=== PATIENT | male | born 1985 | race African-American/Black ===

== ENCOUNTER 2024-06-14 13:56 | Emergency (ER) | payer SELFPAY ==
[~2024-06-14] VITALS: Ht 170.2 cm; Wt 80.0 kg
[2024-06-14 14:01] VITALS: TEMP 36.7; O2SAT 98
[2024-06-14] MEDS: CLONIDINE 0.1MG TABLET PO ONE (14:51)
[2024-06-14 15:07] LABS: BASOPHILS % 0.5 % (0.0-2.0); EOSINOPHILS % 0.4 % (0.0-5.0); HEMATOCRIT. 47.5 % (42.0-52.0); HEMOGLOBIN. 15.7 g/dL (14.0-18.0); LYMPHOCYTES % 19.1 % (20.0-50.0); MEAN CORPUSCULAR HEMOGLOBIN 30.7 pg (28.0-32.0); MEAN CORPUSCULAR VOLUME 93.1 fL (80.0-94.0); MEAN PLATELET VOLUME 7.9 fl (7.4-10.4); MONOCYTES % 6.3 % (2.0-8.0); NEUTROPHILS % 73.7 % (40.0-76.0); PLATELET 290 x1000/uL (130-400); RED CELL DISTRIBUTION WIDTH 13.5 % (11.6-14.6)
[2024-06-14 15:13] LABS: CHLORIDE 107 mEq/L (98-107); POTASSIUM 3.8 mEq/L (3.5-5.1); SODIUM 141 mEq/L (136-145)
[2024-06-14 15:14] LABS: CALCIUM 9.9 mg/dL (8.7-10.4); CARBON DIOXIDE 26 mEq/L (21-32)
[2024-06-14 15:19] LABS: GLUCOSE 111 mg/dL (70-105); UREA NITROGEN BLOOD 9 mg/dL (9-23)
[2024-06-14 15:32] LABS: TROPONIN I HIGH SENSITIVITY < 4 ng/L (3.0-53)
[2024-06-14 16:06] VITALS: BP 123/89; PULSE 72; RESP 13; O2SAT 100
[2024-06-14 16:32] LABS: PROTHROMBIN TIME 11.1 sec (9.6-11.0)
== END 2024-06-14 16:06 ==
LOC: ER 14:09
DX: R07.89 Other chest pain (principal); I10 Essential (primary) hypertension; Z79.899 Other long term (current) drug therapy
CPT/HCPCS: 99285; 71045; 80048; 85025; 85610; 84484; 36415; 93005; A4663